=== PATIENT | female | born 1985 | race Caucasian/White ===

== ENCOUNTER 2024-03-28 14:59 | Emergency (ER) | payer BC ==
[2024-03-28] MEDS: Ketorolac 30 MG/ML SDV IVPUSH STA (15:57)
[2024-03-28] MEDS: Ondansetron 4 MG/2 ML SDV IVPUSH STA (15:57)
[2024-03-28] MEDS: Sodium Chloride 0.9% 1,000 ML IV STA (15:57)
[2024-03-28] MEDS: Sodium Chloride 0.9% 2.5 ML Syringe FLUSH PRN (15:58)
[2024-03-28] MEDS: Sodium Chloride 0.9% 10 ML Syringe FLUSH PRN (15:58)
[2024-03-28 16:13] LABS: BASOPHILS ABSOLUTE AUTO 0.03 K/uL (0.00-0.20); BASOPHILS PERCENT AUTO 0.6 % (0.0-1.0); EOSINOPHILS ABSOLUTE AUTO 0.07 K/uL (0.00-0.45); EOSINOPHILS PERCENT AUTO 1.4 % (0.0-6.0); HEMATOCRIT 37.9 % (37.0-47.0); HEMOGLOBIN 13.1 g/dL (12.0-16.0); IMMATURE GRAN ABSOLUTE AUTO 0.02 K/uL (0.00-0.05); IMMATURE GRAN PERCENT AUTO 0.4 % (0.0-0.4); LYMPHOCYTES ABSOLUTE AUTO 0.96 K/uL (1.00-4.80); LYMPHOCYTES PERCENT AUTO 18.9 % (24.0-44.0); MEAN CORPUSCULAR HEMOGLOBIN 31.5 pg (28.0-32.0); MEAN CORPUSCULAR HGB CONC 34.6 g/dL (32.0-36.0); MEAN CORPUSCULAR VOLUME 91.1 fL (83.0-99.0); MEAN PLATELET VOLUME 10.2 fL (9.4-12.3); MONOCYTES ABSOLUTE AUTO 0.56 K/uL (0.00-0.80); NEUTROPHILS ABSOLUTE AUTO 3.44 K/uL (1.80-7.70); NEUTROPHILS PERCENT AUTO 67.7 % (41.0-71.0); PLATELET COUNT,PLT 193 K/uL (150-400); RED BLOOD CELL COUNT 4.16 M/uL (4.10-5.30); WHITE BLOOD CELL COUNT,WBC 5.08 K/uL (3.9-11.3)
[2024-03-28 16:18] LABS: APPEARANCE,URINE CLEAR; BILIRUBIN,URINE NEGATIVE (NEGATIVE); COLOR,URINE YELLOW; GLUCOSE,URINE NEGATIVE (NEGATIVE); KETONES,URINE NEGATIVE (NEGATIVE); LEUKOCYTE ESTERASE,URINE NEGATIVE (NEGATIVE); NITRITE,URINE NEGATIVE (NEGATIVE); OCCULT BLOOD,URINE NEGATIVE (NEGATIVE); PROTEIN,URINE NEGATIVE (NEGATIVE); UROBILINOGEN,URINE 0.2 EU/dL (<2.0)
[2024-03-28 16:34] LABS: A/G RATIO 1.2 (0.9-1.6); ALBUMIN 3.9 g/dL (3.4-5.0); BILIRUBIN TOTAL 0.6 mg/dL (0.2-1.0); CALCIUM 9.1 mg/dL (8.5-10.1); CARBON DIOXIDE,CO2 27.6 mmol/L (21.0-32.0); EST CRCL DRUG DOSING (CG) 75.63 mL/min; POTASSIUM,K 3.9 mmol/L (3.5-5.1); PROTEIN TOTAL,TP 7.1 g/dL (6.4-8.2)
[2024-03-28] MEDS: diphenhydrAMINE 50 MG/ML SDV IVPUSH STA (16:39)
[2024-03-28] MEDS: methylPREDNISolone Sodium Succinate 125 MG/2 ML SDV IVPUSH STA (16:39)
[2024-03-28] MEDS: Iopamidol 755 MG/ML 500 ML Multipack Bottle IVPUSH STA (17:44)
[2024-03-28] MEDS ORDERED: Iopamidol 755 MG/ML 500 ML Multipack Bottle IVPUSH STA (20:08)
== END 2024-03-28 19:13 | disposition home or self-care (01) ==
LOC: MW.ED 14:59
DX: R10.12 Left upper quadrant pain (principal); I10 Essential (primary) hypertension; Z75.8 Other problems related to medical facilities and other health care; Z88.8 Allergy status to other drugs, medicaments and biological substances; Z91.041 Radiographic dye allergy status; Z79.899 Other long term (current) drug therapy; Z86.16 Personal history of COVID-19
CPT/HCPCS: 36415; 74177; 80053; 81003; 83690; 83735; 84703; 85025; 96361; 96374; 96375; 99284; J1200; J1885; J2405; J2919; J3490; J7030; Q9967